=== PATIENT | male | born 1950 | race Caucasian/White ===

== ENCOUNTER 2024-02-27 00:03 | Inpatient (IN) | payer MEDICARE, BC ==
[~2024-02-27] VITALS: Ht 167.6 cm; Wt 78.9 kg
[2024-02-27 01:11] LABS: EOSINOPHILS % (AUTO) 0.2 % (0-6); MONOCYTES # (AUTO) 1.3 X10'3 (0-0.9); RED BLOOD COUNT 3.17 X10'6 (4.70-6.10)
[2024-02-27 01:13] LABS: BASOPHILS # (AUTO) 0.1 X10'3 (0-0.2); BASOPHILS % (AUTO) 0.7 % (0-1); LYMPHOCYTES # (AUTO) 1.1 X10'3 (1.1-4.8); LYMPHOCYTES % (AUTO) 11.8 % (21-51); MEAN CORPUSCULAR HEMOGLOBIN 28.2 PG (27.0-31.0); MEAN CORPUSCULAR HGB CONC 33.2 g/dL (33.0-36.5); MEAN CORPUSCULAR VOLUME 85.2 FL (78-98); MEAN PLATELET VOLUME 8.5 FL (7.4-10.4); MONOCYTES % (AUTO) 14.4 % (2-12); NEUTROPHILS # (AUTO) 6.6 X10'3 (1.8-7.7); NEUTROPHILS % (AUTO) 72.9 % (42-75); PLATELET COUNT 71 X10'3 (140-440)
[2024-02-27 01:24] LABS: ALANINE AMINOTRANSFERASE 9 U/L (12-78); ALBUMIN 2.4 G/DL (3.4-5.0); ALBUMIN/GLOBULIN RATIO 0.7 (1.1-1.5); ALKALINE PHOSPHATASE 69 IU/L (46-116); ANION GAP 8 (8-16); ASPARTATE AMINO TRANSFERASE 9 U/L (10-37); BILIRUBIN,TOTAL 0.5 MG/DL (0.1-1.0); BLOOD UREA NITROGEN 10 MG/DL (7-18); BUN/CREATININE RATIO 10.9 (10.0-20.0); CALCIUM 7.7 MG/DL (8.5-10.1); CHLORIDE 97 MMOL/L (99-107); CREATININE 0.92 MG/DL (0.60-1.10); GLUCOSE 91 MG/DL (70-104); POTASSIUM 3.3 MMOL/L (3.5-5.1); SODIUM 126 MMOL/L (135-145); TOTAL PROTEIN 5.9 G/DL (6.4-8.2); eCRCL 63 ML/MIN; eGFR 80 ML/MIN
[2024-02-27 01:29] LABS: PLATELET ESTIMATE DECREASED
[2024-02-27 01:30] LABS: ANISOCYTOSIS 2+; POLYCHROMASIA FEW
[2024-02-27] MEDS ORDERED: morphine 2 MG/ML inj. syringe IV PRN ×2 (02:30)
[2024-02-27] MEDS ORDERED: magnesium sulf-water 2g/50mL 50 ML IV PRN (02:30)
[2024-02-27] MEDS ORDERED: ondansetron/PF 4mg/2ml inj IV PRN (02:30)
[2024-02-27] MEDS ORDERED: potassium Cl 40MEQ/1/2NS 520ml 520 ML IV PRN (02:30)
[2024-02-27] MEDS ORDERED: magnesium hydroxide 30ml (MOM) UD suspension PO PRN (02:30)
[2024-02-27] MEDS ORDERED: magnesium sulf-water 4G/100mL 100 ML IV PRN (02:30)
[2024-02-27] MEDS ORDERED: acetaminophen 325mg tablet PO PRN (02:30)
[2024-02-27] MEDS ORDERED: potassium Cl 20 mEq SR tablet PO PRN (02:30)
[2024-02-27] MEDS: potassium Cl 20 mEq SR tablet PO PRN (03:04)
[2024-02-27 03:18] VITALS: BP 98/52; PULSE 63; RESP 18; TEMP 97.8; O2SAT 97
[2024-02-27] MEDS: sodium chloride 0.45% 1,000 ML IV SCH (03:54)
[2024-02-27 06:42] LABS: MAGNESIUM 1.7 MG/DL (1.5-2.4); POTASSIUM 3.7 MMOL/L (3.5-5.1)
[2024-02-27] MEDS: K and/or MAG REPLACEMENT MC SCH (07:17)
[2024-02-27] MEDS: docusate sod 100mg capsule PO SCH (07:25)
[2024-02-27 08:00] VITALS: RESP 16; O2SAT 97
[2024-02-27] MEDS: normal saline 1000ml 1,000 ML IV SCH (09:34)
[2024-02-27 09:56] VITALS: BP 112/64; PULSE 59; RESP 16; TEMP 98.5; O2SAT 98
[2024-02-27] MEDS ORDERED: LOSA-415 PO (11:23)
[2024-02-27] MEDS ORDERED: METO-395 PO (11:23)
[2024-02-27] MEDS ORDERED: FERR-119 PO (11:23)
[2024-02-27] MEDS ORDERED: MIRA25TA PO (11:23)
[2024-02-27] MEDS ORDERED: QUELT PO (11:23)
[2024-02-27] MEDS ORDERED: CHOL1CAP16 (11:23)
[2024-02-27] MEDS ORDERED: [UNRECOGNIZED DRUG - OTHER] PO (11:23)
[2024-02-27] MEDS ORDERED: CYAN100070 PO (11:23)
[2024-02-27] MEDS ORDERED: ALFU10TA47 PO (11:23)
[2024-02-27] MEDS ORDERED: tamsulosin 0.4mg capsule PO SCH ×2 (15:55→21:00)
[2024-02-27 18:00] VITALS: BP 80/50; PULSE 82; RESP 18; TEMP 97.8; O2SAT 98
[2024-02-27] MEDS: lactose-reduced food (Ensure Enlive) - 237ml bottle PO SCH (18:01)
[2024-02-27 20:00] VITALS: RESP 18; O2SAT 98
[2024-02-27 22:00] VITALS: BP 96/53; PULSE 94; RESP 16; TEMP 97.3; O2SAT 98
[2024-02-28] VITALS (21 sets, daily range): BP systolic 94–128; BP diastolic 47–68; PULSE 100–118; RESP 12–29; TEMP 97.4–98.8; O2SAT 93–100
[2024-02-28] MEDS: chloestyramine/aspartame 4gm packet PO SCH (08:00)
[2024-02-28] MEDS: mirabegron 25mg ER tablet PO SCH (08:00)
[2024-02-28 09:00] LABS: BASOPHILS % (AUTO) 0.1 % (0-1); EOSINOPHILS % (AUTO) 0 % (0-6); HEMATOCRIT 23.5 % (42.0-52.0); HEMOGLOBIN 7.7 g/dl (14.0-17.9); LYMPHOCYTES # (AUTO) 0.4 X10'3 (1.1-4.8); LYMPHOCYTES % (AUTO) 2.5 % (21-51); MEAN CORPUSCULAR HEMOGLOBIN 28.4 PG (27.0-31.0); MEAN CORPUSCULAR HGB CONC 32.7 g/dL (33.0-36.5); MEAN CORPUSCULAR VOLUME 86.8 FL (78-98); MEAN PLATELET VOLUME 9.3 FL (7.4-10.4); MONOCYTES # (AUTO) 2.9 X10'3 (0-0.9); NEUTROPHILS # (AUTO) 11.1 X10'3 (1.8-7.7); NEUTROPHILS % (AUTO) 77.4 % (42-75); PLATELET COUNT 80 X10'3 (140-440); RED BLOOD COUNT 2.71 X10'6 (4.70-6.10); RED CELL DISTRIBUTION WIDTH 23.7 % (11.5-14.5); WHITE BLOOD COUNT 14.3 X10'3 (4.5-11.0)
[2024-02-28 09:04] LABS: APTT 30 SECONDS (22-32); INR 1.2 INR; PROTHROMBIN TIME 12.2 SECONDS (9.0-12.0)
[2024-02-28] MEDS: cyanocobalamin 500mcg tablet PO SCH (09:06)
[2024-02-28 09:29] LABS: % IRON SATURATION 6 % (11-46); IRON 13 UG/DL (53-167); TOTAL IRON BINDING CAPACITY 209 UG/DL (259-388)
[2024-02-28 09:40] LABS: ALANINE AMINOTRANSFERASE 13 U/L (12-78); ALBUMIN 2.3 G/DL (3.4-5.0); ALBUMIN/GLOBULIN RATIO 0.7 (1.1-1.5); ALKALINE PHOSPHATASE 70 IU/L (46-116); ANION GAP 9 (8-16); ASPARTATE AMINO TRANSFERASE 9 U/L (10-37); BILIRUBIN,TOTAL 0.5 MG/DL (0.1-1.0); BLOOD UREA NITROGEN 7 MG/DL (7-18); BUN/CREATININE RATIO 7.1 (10.0-20.0); CALCIUM 7.9 MG/DL (8.5-10.1); CHLORIDE 102 MMOL/L (99-107); CREATININE 0.99 MG/DL (0.60-1.10); FERRITIN 537 NG/ML (26-388); GLUCOSE 95 MG/DL (70-104); MAGNESIUM 1.6 MG/DL (1.5-2.4); POTASSIUM 3.9 MMOL/L (3.5-5.1); SODIUM 132 MMOL/L (135-145); TOTAL CARBON DIOXIDE 20.6 MMOL/L (24-32); TOTAL PROTEIN 5.8 G/DL (6.4-8.2); eCRCL 58 ML/MIN; eGFR 74 ML/MIN
[2024-02-28] MEDS ORDERED: ondansetron/PF 4mg/2ml inj IV PRN (10:05)
[2024-02-28] MEDS ORDERED: morphine 4 MG/ML inj SYRINge IV PRN (10:05)
[2024-02-28] MEDS: ringers solution, lacted 1,000 ML IV SCH (10:05)
[2024-02-28] MEDS ORDERED: morphine 2 MG/ML inj. syringe IV PRN (10:05)
[2024-02-28] MEDS ORDERED: meperidine/PF 25mg/ml syringe IV PRN ×3 (10:05)
[2024-02-28] MEDS ORDERED: proCHLORperazine 10 MG/2 ml inj IV PRN (10:05)
[2024-02-28] MEDS ORDERED: fentaNYL/PF 50MCG/1 ML 2ML syringe ONE (10:17)
[2024-02-28] MEDS ORDERED: midazolam 1 mg/ML 2ml injection ONE (10:18)
[2024-02-28] MEDS ORDERED: sevoflurane 250ml liquid IH ONE (10:31)
[2024-02-28] MEDS ORDERED: ceFAZolin 1000mg inj ONE ×2 (10:48)
[2024-02-28] MEDS ORDERED: propofol inj 20 ML IV ONE (10:48)
[2024-02-28] MEDS ORDERED: albumin (Human) 5% 250ml 250 ML IV ONE (11:05)
[2024-02-28 14:09] LABS: EOSINOPHILS % (AUTO) 0 % (0-6); MEAN CORPUSCULAR HEMOGLOBIN 27.6 PG (27.0-31.0); MEAN CORPUSCULAR VOLUME 86.3 FL (78-98)
[2024-02-28 14:11] LABS: BASOPHILS % (AUTO) 0.2 % (0-1); LYMPHOCYTES # (AUTO) 0.4 X10'3 (1.1-4.8); LYMPHOCYTES % (AUTO) 2.4 % (21-51); MEAN PLATELET VOLUME 8.4 FL (7.4-10.4); MONOCYTES # (AUTO) 3.8 X10'3 (0-0.9); MONOCYTES % (AUTO) 24.7 % (2-12); NEUTROPHILS # (AUTO) 11.3 X10'3 (1.8-7.7); NEUTROPHILS % (AUTO) 72.7 % (42-75); PLATELET COUNT 68 X10'3 (140-440); RED BLOOD COUNT 2.42 X10'6 (4.70-6.10); RED CELL DISTRIBUTION WIDTH 23.9 % (11.5-14.5); WHITE BLOOD COUNT 15.5 X10'3 (4.5-11.0)
[2024-02-28 14:26] LABS: HEMOGLOBIN 6.7 g/dl (14.0-17.9)
[2024-02-28 14:27] LABS: HEMATOCRIT 20.9 % (42.0-52.0)
[2024-02-28 14:30] LABS: ANISOCYTOSIS 3+; PLATELET ESTIMATE DECREASED; TOTAL CELLS COUNTED 100
[2024-02-28 14:31] LABS: HYPOCHROMASIA 1+; POLYCHROMASIA 1+; TEAR DROP CELLS FEW
[2024-02-28 16:54] LABS: ALBUMIN 2.2 G/DL (3.4-5.0); ANION GAP 9 (8-16); BLOOD UREA NITROGEN 10 MG/DL (7-18); CALCIUM 7.2 MG/DL (8.5-10.1); CHLORIDE 101 MMOL/L (99-107); CREATININE 1.25 MG/DL (0.60-1.10); GLUCOSE 124 MG/DL (70-104); POTASSIUM 3.8 MMOL/L (3.5-5.1); SODIUM 130 MMOL/L (135-145); TOTAL CARBON DIOXIDE 20.2 MMOL/L (24-32); eCRCL 46 ML/MIN; eGFR 56 ML/MIN
[2024-02-28] MEDS: acetaminophen 325mg tablet PO PRN (17:01)
[2024-02-28] MEDS: ferrous sulfate 325mg tablet PO SCH (20:14)
[2024-02-28] MEDS: mag hydrox/Alum hydrox/simeth 30ml oral suspension PO PRN (20:14)
[2024-02-28 21:46] LABS: MEAN CORPUSCULAR HEMOGLOBIN 27.9 PG (27.0-31.0); MEAN CORPUSCULAR HGB CONC 32.2 g/dL (33.0-36.5); MEAN CORPUSCULAR VOLUME 86.5 FL (78-98); MEAN PLATELET VOLUME 8.4 FL (7.4-10.4); PLATELET COUNT 68 X10'3 (140-440); RED BLOOD COUNT 2.26 X10'6 (4.70-6.10); RED CELL DISTRIBUTION WIDTH 24.2 % (11.5-14.5); WHITE BLOOD COUNT 16.4 X10'3 (4.5-11.0)
[2024-02-28 21:48] LABS: HEMOGLOBIN 6.3 g/dl (14.0-17.9)
[2024-02-28 21:49] LABS: HEMATOCRIT 19.5 % (42.0-52.0)
[2024-02-29] VITALS (7 sets, daily range): BP systolic 88–104; BP diastolic 45–54; PULSE 86–97; RESP 12–16; TEMP 97.5–98.9; O2SAT 96–99
[2024-02-29 06:53] LABS: BASOPHILS % (AUTO) 0.1 % (0-1); EOSINOPHILS % (AUTO) 0.1 % (0-6); LYMPHOCYTES # (AUTO) 0.6 X10'3 (1.1-4.8); PLATELET COUNT 69 X10'3 (140-440)
[2024-02-29 06:56] LABS: MEAN CORPUSCULAR HGB CONC 32.9 g/dL (33.0-36.5); MEAN CORPUSCULAR VOLUME 85.2 FL (78-98); MEAN PLATELET VOLUME 8.8 FL (7.4-10.4); MONOCYTES # (AUTO) 4.6 X10'3 (0-0.9); MONOCYTES % (AUTO) 29.1 % (2-12); NEUTROPHILS # (AUTO) 10.5 X10'3 (1.8-7.7); NEUTROPHILS % (AUTO) 66.7 % (42-75); RED BLOOD COUNT 2.45 X10'6 (4.70-6.10); RED CELL DISTRIBUTION WIDTH 23.2 % (11.5-14.5); WHITE BLOOD COUNT 15.8 X10'3 (4.5-11.0)
[2024-02-29 07:10] LABS: HEMATOCRIT 20.9 % (42.0-52.0); HEMOGLOBIN 6.9 g/dl (14.0-17.9)
[2024-02-29 07:43] LABS: ALANINE AMINOTRANSFERASE 6 U/L (12-78); ALBUMIN 1.9 G/DL (3.4-5.0); ALBUMIN/GLOBULIN RATIO 0.6 (1.1-1.5); ALKALINE PHOSPHATASE 61 IU/L (46-116); ANION GAP 10 (8-16); ASPARTATE AMINO TRANSFERASE 11 U/L (10-37); BILIRUBIN,TOTAL 0.7 MG/DL (0.1-1.0); BLOOD UREA NITROGEN 8 MG/DL (7-18); BUN/CREATININE RATIO 8.1 (10.0-20.0); CHLORIDE 99 MMOL/L (99-107); CREATININE 0.99 MG/DL (0.60-1.10); GLUCOSE 92 MG/DL (70-104); MAGNESIUM 1.4 MG/DL (1.5-2.4); POTASSIUM 3.2 MMOL/L (3.5-5.1); SODIUM 130 MMOL/L (135-145); eCRCL 58 ML/MIN; eGFR 74 ML/MIN
[2024-02-29] MEDS: magnesium Cl slow-release 64mg tablet PO PRN (07:56)
[2024-02-29] MEDS: iron sucrose complex injection 500 MG in normal saline 250ml IV soln 250 ML IV ONE (11:30)
[2024-02-29 13:35] LABS: HEMATOCRIT 25.2 % (42.0-52.0); HEMOGLOBIN 8.2 g/dl (14.0-17.9); MEAN CORPUSCULAR HGB CONC 32.6 g/dL (33.0-36.5); MEAN CORPUSCULAR VOLUME 85.7 FL (78-98); MEAN PLATELET VOLUME 9.3 FL (7.4-10.4); PLATELET COUNT 78 X10'3 (140-440); RED BLOOD COUNT 2.94 X10'6 (4.70-6.10); RED CELL DISTRIBUTION WIDTH 21.3 % (11.5-14.5); WHITE BLOOD COUNT 16.9 X10'3 (4.5-11.0)
[2024-02-29 16:46] LABS: HEMATOCRIT 23.2 % (42.0-52.0); HEMOGLOBIN 7.7 g/dl (14.0-17.9); PLATELET COUNT 71 X10'3 (140-440); RED BLOOD COUNT 2.73 X10'6 (4.70-6.10)
[2024-02-29 16:47] LABS: MEAN CORPUSCULAR HEMOGLOBIN 28.2 PG (27.0-31.0); MEAN CORPUSCULAR HGB CONC 33.2 g/dL (33.0-36.5); MEAN CORPUSCULAR VOLUME 84.9 FL (78-98); MEAN PLATELET VOLUME 8.9 FL (7.4-10.4); RED CELL DISTRIBUTION WIDTH 21.4 % (11.5-14.5)
[2024-02-29 22:50] LABS: HEMATOCRIT 24.1 % (42.0-52.0); HEMOGLOBIN 8.1 g/dl (14.0-17.9); MEAN CORPUSCULAR HEMOGLOBIN 30.1 PG (27.0-31.0); MEAN CORPUSCULAR HGB CONC 33.5 g/dL (33.0-36.5); MEAN CORPUSCULAR VOLUME 89.8 FL (78-98); MEAN PLATELET VOLUME 8.6 FL (7.4-10.4); PLATELET COUNT 61 X10'3 (140-440); RED BLOOD COUNT 2.68 X10'6 (4.70-6.10); RED CELL DISTRIBUTION WIDTH 22.8 % (11.5-14.5); WHITE BLOOD COUNT 17.1 X10'3 (4.5-11.0)
[2024-03-01 06:10] LABS: BASOPHILS % (AUTO) 0.2 % (0-1); EOSINOPHILS % (AUTO) 0.1 % (0-6); HEMATOCRIT 23.7 % (42.0-52.0); HEMOGLOBIN 7.9 g/dl (14.0-17.9); MEAN CORPUSCULAR HEMOGLOBIN 28.4 PG (27.0-31.0); MEAN CORPUSCULAR HGB CONC 33.4 g/dL (33.0-36.5); MEAN CORPUSCULAR VOLUME 85.1 FL (78-98); RED BLOOD COUNT 2.78 X10'6 (4.70-6.10)
[2024-03-01 06:12] LABS: LYMPHOCYTES # (AUTO) 0.6 X10'3 (1.1-4.8); LYMPHOCYTES % (AUTO) 4.6 % (21-51); MEAN PLATELET VOLUME 8.8 FL (7.4-10.4); MONOCYTES % (AUTO) 21.1 % (2-12); NEUTROPHILS # (AUTO) 10.5 X10'3 (1.8-7.7); PLATELET COUNT 83 X10'3 (140-440); RED CELL DISTRIBUTION WIDTH 21.3 % (11.5-14.5); WHITE BLOOD COUNT 14.1 X10'3 (4.5-11.0)
[2024-03-01 06:32] LABS: ALANINE AMINOTRANSFERASE 10 U/L (12-78); ALBUMIN/GLOBULIN RATIO 0.6 (1.1-1.5); ALKALINE PHOSPHATASE 70 IU/L (46-116); ANION GAP 10 (8-16); ASPARTATE AMINO TRANSFERASE 13 U/L (10-37); BILIRUBIN,TOTAL 0.6 MG/DL (0.1-1.0); BLOOD UREA NITROGEN 8 MG/DL (7-18); BUN/CREATININE RATIO 8.9 (10.0-20.0); CALCIUM 7.4 MG/DL (8.5-10.1); CHLORIDE 101 MMOL/L (99-107); GLUCOSE 95 MG/DL (70-104); MAGNESIUM 1.6 MG/DL (1.5-2.4); SODIUM 131 MMOL/L (135-145); TOTAL CARBON DIOXIDE 20.5 MMOL/L (24-32); TOTAL PROTEIN 5.4 G/DL (6.4-8.2); eCRCL 64 ML/MIN; eGFR 82 ML/MIN
[2024-03-01 06:39] VITALS: BP 95/47; PULSE 82; RESP 18; TEMP 97.8; O2SAT 96
[2024-03-01 06:58] LABS: TOTAL CELLS COUNTED 100
[2024-03-01 06:59] LABS: ANISOCYTOSIS 3+; PLATELET ESTIMATE DECREASED
[2024-03-01 07:06] LABS: BURR CELLS FEW; HYPOCHROMASIA 1+; POLYCHROMASIA 1+
[2024-03-01] MEDS ORDERED: magnesium sulf-water 2g/50mL 50 ML IV PRN (07:30)
[2024-03-01] MEDS ORDERED: potassium Cl 40MEQ/1/2NS 520ml 520 ML IV PRN (07:30)
[2024-03-01] MEDS ORDERED: magnesium sulf-water 4G/100mL 100 ML IV PRN (07:30)
[2024-03-01] MEDS ORDERED: magnesium Cl slow-release 64mg tablet PO PRN (07:30)
[2024-03-01 08:00] VITALS: RESP 18
[2024-03-01] MEDS: K and/or MAG REPLACEMENT MC SCH (08:00)
[2024-03-01] MEDS: normal saline 1000ml 1,000 ML IV SCH (08:55)
[2024-03-01] MEDS: potassium Cl 20 mEq SR tablet PO PRN ×2 (09:17→19:50)
[2024-03-01] MEDS: ringers solution, lacted 1,000 ML IV ONE (09:28)
[2024-03-01 10:00] VITALS: BP 92/48; PULSE 83; RESP 14; TEMP 97.8; O2SAT 98
[2024-03-01 11:12] LABS: HEMATOCRIT 24.3 % (42.0-52.0); HEMOGLOBIN 7.8 g/dl (14.0-17.9); MEAN CORPUSCULAR HEMOGLOBIN 27.5 PG (27.0-31.0); MEAN CORPUSCULAR HGB CONC 32.1 g/dL (33.0-36.5); MEAN CORPUSCULAR VOLUME 85.6 FL (78-98); PLATELET COUNT 90 X10'3 (140-440); RED BLOOD COUNT 2.84 X10'6 (4.70-6.10); RED CELL DISTRIBUTION WIDTH 21.1 % (11.5-14.5); WHITE BLOOD COUNT 14.3 X10'3 (4.5-11.0)
[2024-03-01 11:30] VITALS: BP 96/58; PULSE 81; RESP 16; O2SAT 97
[2024-03-01 14:52] LABS: C DIFF ANTIGEN POSITIVE (NEGATIVE); C DIFF SPECIMEN=DIARRHEA? ACCEPTABLE; C DIFFICILE TOXINS A&B POSITIVE (Neg)
[2024-03-01 15:29] LABS: HEMATOCRIT 25.5 % (42.0-52.0); HEMOGLOBIN 8.1 g/dl (14.0-17.9); MEAN CORPUSCULAR HEMOGLOBIN 27.3 PG (27.0-31.0); MEAN CORPUSCULAR HGB CONC 31.8 g/dL (33.0-36.5); MEAN PLATELET VOLUME 8.8 FL (7.4-10.4); PLATELET COUNT 94 X10'3 (140-440); RED BLOOD COUNT 2.96 X10'6 (4.70-6.10); RED CELL DISTRIBUTION WIDTH 21.2 % (11.5-14.5); WHITE BLOOD COUNT 13.4 X10'3 (4.5-11.0)
[2024-03-01 15:40] LABS: ANION GAP 8 (8-16); BLOOD UREA NITROGEN 7 MG/DL (7-18); BUN/CREATININE RATIO 7.6 (10.0-20.0); CALCIUM 7.3 MG/DL (8.5-10.1); CHLORIDE 101 MMOL/L (99-107); CREATININE 0.92 MG/DL (0.60-1.10); GLUCOSE 121 MG/DL (70-104); POTASSIUM 3.1 MMOL/L (3.5-5.1); SODIUM 129 MMOL/L (135-145); TOTAL CARBON DIOXIDE 20.4 MMOL/L (24-32); eCRCL 63 ML/MIN; eGFR 80 ML/MIN
[2024-03-01] MEDS: vancomycin 125 MG/5 ML UD oral SOLN.RECON 5mL oral syringe (FIRVANQ) PO SCH (16:31)
[2024-03-01] MEDS: lactobacillus rhamnosus 10,000 MMU CELLS/CAPSULE PO SCH (19:39)
[2024-03-01 20:00] VITALS: RESP 16; O2SAT 96
[2024-03-01 22:00] VITALS: BP 103/57; PULSE 84; RESP 16; TEMP 97.8; O2SAT 97
[2024-03-01 22:53] LABS: HEMATOCRIT 22.5 % (42.0-52.0); HEMOGLOBIN 7.4 g/dl (14.0-17.9); MEAN CORPUSCULAR HEMOGLOBIN 28.1 PG (27.0-31.0); MEAN CORPUSCULAR VOLUME 85.1 FL (78-98); MEAN PLATELET VOLUME 8.9 FL (7.4-10.4); PLATELET COUNT 85 X10'3 (140-440); RED BLOOD COUNT 2.65 X10'6 (4.70-6.10); RED CELL DISTRIBUTION WIDTH 21.2 % (11.5-14.5); WHITE BLOOD COUNT 11.1 X10'3 (4.5-11.0)
[2024-03-02 06:00] VITALS: BP 109/59; PULSE 77; RESP 18; TEMP 97.6; O2SAT 98
[2024-03-02 06:42] LABS: BASOPHILS % (AUTO) 0.2 % (0-1); EOSINOPHILS % (AUTO) 0.2 % (0-6); HEMATOCRIT 25.9 % (42.0-52.0); HEMOGLOBIN 8.5 g/dl (14.0-17.9); LYMPHOCYTES # (AUTO) 0.6 X10'3 (1.1-4.8); LYMPHOCYTES % (AUTO) 5.5 % (21-51); MEAN CORPUSCULAR HEMOGLOBIN 28.2 PG (27.0-31.0); MEAN CORPUSCULAR HGB CONC 32.9 g/dL (33.0-36.5); MEAN CORPUSCULAR VOLUME 85.7 FL (78-98); MEAN PLATELET VOLUME 9.3 FL (7.4-10.4); MONOCYTES # (AUTO) 1.1 X10'3 (0-0.9); MONOCYTES % (AUTO) 9.6 % (2-12); NEUTROPHILS % (AUTO) 84.5 % (42-75); PLATELET COUNT 105 X10'3 (140-440); RED BLOOD COUNT 3.02 X10'6 (4.70-6.10); RED CELL DISTRIBUTION WIDTH 21.2 % (11.5-14.5); WHITE BLOOD COUNT 11.9 X10'3 (4.5-11.0)
[2024-03-02 06:53] LABS: ALANINE AMINOTRANSFERASE 15 U/L (12-78); ALBUMIN 2.1 G/DL (3.4-5.0); ALBUMIN/GLOBULIN RATIO 0.6 (1.1-1.5); ALKALINE PHOSPHATASE 85 IU/L (46-116); ANION GAP 9 (8-16); ASPARTATE AMINO TRANSFERASE 22 U/L (10-37); BILIRUBIN,TOTAL 0.5 MG/DL (0.1-1.0); BLOOD UREA NITROGEN 5 MG/DL (7-18); BUN/CREATININE RATIO 6.3 (10.0-20.0); CALCIUM 7.4 MG/DL (8.5-10.1); CHLORIDE 101 MMOL/L (99-107); GLUCOSE 87 MG/DL (70-104); MAGNESIUM 1.5 MG/DL (1.5-2.4); POTASSIUM 3.4 MMOL/L (3.5-5.1); SODIUM 131 MMOL/L (135-145); TOTAL CARBON DIOXIDE 21.5 MMOL/L (24-32); TOTAL PROTEIN 5.8 G/DL (6.4-8.2); eCRCL 72 ML/MIN; eGFR > 90 ML/MIN
[2024-03-02 10:00] VITALS: BP 107/58; PULSE 84; RESP 18; TEMP 97.8; O2SAT 98
[2024-03-02] MEDS ORDERED: VANC125C5 PO (11:30)
[2024-03-02] MEDS ORDERED: LACT1CAP26 PO (11:30)
== END 2024-03-02 13:09 | disposition home or self-care (01) | DRG 713 ==
LOC: ER 00:04 → ED HOLD 02:09 → ORTHO 4S 03:15
PROVIDERS: ADMIT Internal Medicine Critical Care Medicine; ATTEND Internal Medicine
PROC: 0TCB8ZZ Extirpation of Matter from Bladder, Via Natural or Artificial Opening Endoscopic (ICD-10-PCS; 2024-02-28)
PROC: 30233N1 Transfusion of Nonautologous Red Blood Cells into Peripheral Vein, Percutaneous Approach (ICD-10-PCS; 2024-02-28)
PROC: 0V508ZZ Destruction of Prostate, Via Natural or Artificial Opening Endoscopic (ICD-10-PCS; principal; 2024-02-28 10:31)
DX: N40.1 Benign prostatic hyperplasia with lower urinary tract symptoms (principal); A41.9 Sepsis, unspecified organism; N17.0 Acute kidney failure with tubular necrosis; E87.1 Hypo-osmolality and hyponatremia; E87.20 Acidosis, unspecified; A04.72 Enterocolitis due to Clostridium difficile, not specified as recurrent; E87.6 Hypokalemia; D50.0 Iron deficiency anemia secondary to blood loss (chronic); R33.8 Other retention of urine; E87.8 Other disorders of electrolyte and fluid balance, not elsewhere classified; Z96.652 Presence of left artificial knee joint; Z85.6 Personal history of leukemia; Z90.49 Acquired absence of other specified parts of digestive tract; R31.9 Hematuria, unspecified; D64.9 Anemia, unspecified
CPT/HCPCS: 36415; 36430; 80048; 80053; 82728; 82948; 83540; 83550; 83735; 84132; 84145; 84466; 85007; 85008; 85025; 85027; 85610; 85651; 85730; 86885; 86900; 86901; 86920; 87081; 87324; 87449; 93005; 97116; 97161; 97530; 99285; A4618; A7000; G0378; J0690; J1756; J2250; J2704; J3010; J3490; J7030; J7040; J7050; J7120; P9016; P9045

== ENCOUNTER 2024-03-18 09:36 | Emergency (ER) | payer MEDICARE, BC ==
[~2024-03-18] VITALS: Ht 167.6 cm; Wt 80.3 kg
[~2024-03-18 09:36] MED LIST: ALFU10TA47 PO; CHOL1CAP16; CYAN100070 PO; FERR-119 PO; LACT1CAP26 PO; MIRA25TA PO; QUELT PO; [UNRECOGNIZED DRUG - OTHER] PO
[2024-03-18 11:06] LABS: EOSINOPHILS % (AUTO) 0.3 % (0-6); HEMOGLOBIN 10.4 g/dl (14.0-17.9); MEAN CORPUSCULAR HEMOGLOBIN 28.9 PG (27.0-31.0); WHITE BLOOD COUNT 5.5 X10'3 (4.5-11.0)
[2024-03-18 11:07] LABS: BASOPHILS % (AUTO) 0.8 % (0-1); HEMATOCRIT 31.7 % (42.0-52.0); LYMPHOCYTES % (AUTO) 18.1 % (21-51); MEAN CORPUSCULAR HGB CONC 32.8 g/dL (33.0-36.5); MEAN CORPUSCULAR VOLUME 88.1 FL (78-98); MEAN PLATELET VOLUME 7.6 FL (7.4-10.4); MONOCYTES # (AUTO) 1.1 X10'3 (0-0.9); MONOCYTES % (AUTO) 19.7 % (2-12); NEUTROPHILS # (AUTO) 3.3 X10'3 (1.8-7.7); NEUTROPHILS % (AUTO) 61.1 % (42-75); PLATELET COUNT 97 X10'3 (140-440); RED CELL DISTRIBUTION WIDTH 21.8 % (11.5-14.5)
[2024-03-18 11:18] LABS: APTT 29 SECONDS (22-32); INR 1.1 INR
[2024-03-18 11:19] LABS: ALANINE AMINOTRANSFERASE 14 U/L (12-78); ALBUMIN 2.7 G/DL (3.4-5.0); ALBUMIN/GLOBULIN RATIO 0.7 (1.1-1.5); ALKALINE PHOSPHATASE 79 IU/L (46-116); ANION GAP 4 (8-16); ASPARTATE AMINO TRANSFERASE 10 U/L (10-37); BILIRUBIN,TOTAL 0.4 MG/DL (0.1-1.0); BLOOD UREA NITROGEN 11 MG/DL (7-18); CALCIUM 8.6 MG/DL (8.5-10.1); CHLORIDE 101 MMOL/L (99-107); CREATININE 0.92 MG/DL (0.60-1.10); GLUCOSE 87 MG/DL (70-104); SODIUM 135 MMOL/L (135-145); TOTAL CARBON DIOXIDE 30.1 MMOL/L (24-32); TOTAL PROTEIN 6.7 G/DL (6.4-8.2); eCRCL 63 ML/MIN; eGFR 80 ML/MIN
[2024-03-18 11:36] LABS: CLARITY,URINE TURBID (Clear); COLOR,URINE RED (Yellow)
[2024-03-18 11:39] LABS: ANISOCYTOSIS 3+; PLATELET ESTIMATE DECREASED; TOTAL CELLS COUNTED 100
[2024-03-18 11:43] LABS: UA COLLECTION TYPE FOLEY CATH
[2024-03-18 11:46] LABS: BACTERIA,URINE 1+ /HPF (Neg); MUCUS STRANDS NONE SEEN /LPF (Neg); RBC,URINE TNTC /HPF (0-2); SQUAMOUS EPITHELIAL CELL,UR FEW /LPF (FEW)
[2024-03-18] MEDS ORDERED: CIPR-260 PO (12:26)
[2024-03-18] MEDS: ciprofloxacin 250mg tablet PO ONE (12:44)
[2024-03-18 12:55] VITALS: BP 128/73; PULSE 72; RESP 14; TEMP 98.2; O2SAT 98
== END 2024-03-18 12:57 | disposition home or self-care (01) ==
LOC: ER 09:37
DX: R31.9 Hematuria, unspecified (principal); Z91.011 Allergy to milk products; Z88.8 Allergy status to other drugs, medicaments and biological substances
CPT/HCPCS: 36415; 80053; 81001; 85007; 85025; 85610; 85730; 87077; 87088; 87186; 99283; A4314; A5200; J7030; 51700; 99284